=== PATIENT | female | born 1955 | race Caucasian/White ===

== ENCOUNTER → 2019-08-04 | Day surgery (SDC) | payer MEDICARE ==
--- NOTE | 2019-07-31 15:10 | NUR ---
Checked patient's temperature 98.1F via skin probe. Patient denies being out of the country in the last 14 days. Patient denies being around anyone who has been out of the country in the last 14 days. Patient denies being around anyone who has been exposed or diagnosed with COVID-19 in the last 14 days. Patient denies fever, cough, or new onset shortness of breath within the last 14 days.
[2019-07-31 16:48] LABS: BASOPHILS % 0.2 % (0.0-1.0); EOSINOPHILS # (AUTO) 0.1 (0.0-0.4); EOSINOPHILS % 1.4 % (0.0-6.0); HEMATOCRIT 39.6 % (34.2-44.1); HEMOGLOBIN 13.2 g/dL (12.0-16.0); MEAN CORPUSCULAR HGB CONC 33.3 g/dL (31-35); MONOCYTES # (AUTO) 0.4 (0.2-0.8); MONOCYTES % 6.5 % (4.4-11.3); NEUTROPHILS # (AUTO) 3.2 (2.1-6.9); NEUTROPHILS % 56.7 % (38.7-80.0); PLATELET COUNT 188 x10e3/uL (140-360); RED BLOOD COUNT 4.26 x10e6/uL (3.6-5.1); RED CELL DISTRIBUTION WIDTH 13.1 % (11.7-14.4)
[2019-07-31 17:08] LABS: ALBUMIN 4.3 g/dL (3.5-5.0); ALBUMIN/GLOBULIN RATIO 1.5 (0.8-2.0); ANION GAP 13.4 mmol/L (8-16); CALCIUM 9.4 mg/dL (8.4-10.2); CREATININE, SERUM 1.18 mg/dL (0.57-1.11); POTASSIUM 3.4 mmol/L (3.5-5.1)
--- NOTE | 2019-08-03 16:20 | NUR ---
Patient notified procedural time changed to 1030 on 08/04/2019. Patient instructed no eating or drinking after midnight. Patient verbalized understanding.
[2019-08-04] VITALS (7 sets, daily range): BP systolic 95–107; BP diastolic 52–69
[~2019-08-04] VITALS: Ht 162.6 cm; Wt 81.6 kg
[~2019-08-04] MED LIST: ACETAMINOPHEN IM; ALPRAZOLAM 0.5 MG TAB ONE; ALPRAZOLAM0.25 MG PO; AMANTADINE100 M1 PO; AMBIEN5 MG PO; ATORVASTATIN CA20 MG PO; BUT IM; CARVEDILOL3.125 MG PO; DIHYDROERGO1 MG/1 ML IM; DIPHENHYDRAMINE HCL 25 MG CAP ONE; FENTANYL CITRATE/PF 100MCG/2 ML INJ ONE; FUROSEMIDE40 MG PO; GABAPENTIN300 MG PO; HEPARIN SOD/SOD CHLORIDE 2,000 ML ONE; HYDROCHLOROTHIA25 MG PO; HYDROXYCHLOROQ200 MG PO; HYDROXYZINE HCL25 MG PO; IOPAMIDOL 370 MG/ML 200 ML INFUS..BTL INJ ONE; LIDOCAINE HCL 2% LOCAL 20 ML VIAL ONE; MAXALT10 MG PO; MIDAZOLAM HCL 2 MG/2 ML VIAL ONE; SODIUM CHLORIDE 0.9% 1000ML 1,000 ML ONE; TEMAZEPAM15 MG PO; TOPIRAMATE25 MG PO; TOVIAZ4 MG PO; ULTRAM50 MG PO; VERAPAMIL HCL 2.5 MG/ML 2 ML VIAL ONE; VESICARE5 MG PO; VITAMIN D250000 UNIT PO
--- OUTSIDE RECORDS SUMMARY | 2019-08-04 09:54 | XMS REPORT | Summary of Care ---
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: Active Medications Name Dates Details Toviaz 4 MG Oral Tablet Extended Release 24 Hour Active Kevzara 200 MG/1.14ML Subcutaneous Solution Prefilled Syringe * Refills: 0 Active Gabapentin 100 MG Oral Capsule * Refills: 0 Active traMADol HCl - 50 MG Oral Tablet * Refills: 0 Active Temazepam 15 MG Oral Capsule * Refills: 0 Active Amantadine HCl - 100 MG Oral Tablet * Refills: 0 Active Eivqiwsnut-CBUQ-Uvvhucgb 50-325-40 MG Oral Tablet * Refills: 0 Active ALPRAZolam 0.25 MG Oral Tablet * Refills: 0 Active Lasix 20 MG Oral Tablet * Refills: 0 Active Atorvastatin Calcium 20 MG Oral Tablet * Refills: 0 Active Allergies and Adverse Reactions Name Dates Details No Known Drug Allergies (Allergy) Status: Active Past Medical History Name Dates Details History of Migraine headache (346.90, G43.909) Status: Resolved History of Parkinson disease, symptomatic (332.0, G20) Status: Resolved History of rheumatoid arthritis (V13.4, Z87.39) Status: Resolved Procedures Procedure Dates Details [UTP] Toxin - Botox Date: 08-Apr-2019 History of Tonsillectomy Completed History of Complete Colonoscopy Completed History of Hysterectomy Completed History of Angioplasty Completed Immunization Name Dates Details Immunizations not documented Family History Name Dates Details Family history of Nerve disorder (349.9, G58.9) Status: Active Family history of diabetes mellitus (V18.0, Z83.3) Status: Active Family history of cerebrovascular accident (CVA) (V17.1, Z82.3) Status: Active Family history of malignant neoplasm (V16.9, Z80.9) Status: Active Social History Name Dates Details - Status: Name Dates Details Never smoker Vital Signs Date Test Result Details [id number] BP Systolic 112 mm[Hg] Status: Comments: Location: LLE; Position: Sitting BP Diastolic 70 mm[Hg] Status: Comments: Location: LLE; Position: Sitting Height 64 in Status: Weight 154 lb Status: Body Mass Index Calculated 26.43 kg/m2 Status: Body Surface Area Calculated 1.75 m2 Status: Temperature 98.6 f Status: Heart Rate 85 /min Status: Results Date Description Value Details Results not documented Plan of Care Name Dates Details Planned Observations [UTP] Toxin - Botox On: 08-Jul-2019 Intent Planned Goals not documented Planned Encounters Appointment; TERRELL WHITLEY M.D. On: 08-Jul-2019 10:00 Interventions Provided Labs/Procedures/Imaging* Tobacco Use Screening; Done: 08 Apr 2019 Instructions Name Dates Details Instructions not documented Encounters Appointment; TERRELL WHITLEY M.D. Encounter Diagnosis: Problem not documented On: 08-Apr-2019 11:45
--- OUTSIDE RECORDS SUMMARY | 2019-08-04 09:54 | XMS REPORT | Summary of Care ---
Author Author SATURDAY TERRELL Lucero Unknown Address Unknown Phone Unavailable Care Team Providers Care Refractory Grinder Operator Name Role Phone SATURDAY TERRELL Lucero Unavailable [...] MG Oral Tablet * Refills: 0 Active Kicgapmkuh-QRFJ-Rmddwngr 50-325-40 MG Oral Tablet * Refills: 0 [...] Z87.39) Status: Resolved Procedures Procedure Dates Details History of Tonsillectomy Completed History of Complete [...] smoker Vital Signs Date Test Result Details No Known Vitals to report Results Date Description Value Details Results not documented Plan of Care Name Dates Details Planned Observations [UTP] Toxin - Botox On: 08-Jul-2019 Intent Planned Goals not documented Planned Encounters Appointment; ANGITERRELL OCASIO M.D. On: 08-Jul-2019 10:00 Interventions Provided Labs/Procedures/Imaging* Tobacco Use Screening; Done: 08 Apr 2019 Instructions Name Dates Details Instructions not documented Encounters Appointment; TERRELL WHITLEY M.D. Encounter Diagnosis: Problem not documented On: 08-Apr-2019 11:45
--- NOTE | 2019-08-04 11:56 | NUR ---
1156amRECEIVING NOTE MACHINE MAINTENANCE SERVICER RECOVERY DEPT............................................................... Bedside report received from THIERNO Garcia. Identifierx2. Alert oriented and appropriate, PERRLA, respirations even and unlabored to room air. Pulses x4 extremities equal and strong. Pedal pulses PT/DP X4 and marked. Rt TR band ok to decrease at 1245p Skin warm and dry integrity appears D/I. IV 20g to left ac presents healthy w/o s/s of infiltration or complaint. Abdomen soft and supple. pt offered toileting, denies need to urinate or defecate. No personal affects with patient. Family at bedside. Pt and family verbalizes understanding of POC. Currently w/o complaint of pain or need. margarita/rn
--- NOTE | 2019-08-04 12:24 | Operative Report ---
DATE OF PROCEDURE: 08/04/2019 SURGEON: Adithya King MD INDICATION: Coronary artery disease, unstable angina, abnormal stress test. PROCEDURES PERFORMED: 1. Left heart catheterization, selective coronary angiography. 2. Deployment of right wrist TR band. 3. Ultrasound-guided access in the right radial artery. 4. 35 minutes for conscious sedation, monitoring and administration, hemodynamic and neurological assessment. Recovery by supervisor labor gang RN and supervision by MD. COMPLICATIONS: None. BLOOD LOSS: Minimal. RECOMMENDATIONS: Medical therapy. DESCRIPTION OF PROCEDURE: Access obtained in the right radial artery using ultrasound guidance. A 5-[place]awk sheath was placed. Coronary angiography demonstrated mid left anterior descending artery 50%, proximal circumflex 50%, remaining vessels had diffuse 30% to 50% stenosis. LV end-diastolic pressure of 13. No gradient across the aortic valve on pullback. No intervention deemed necessary. Right wrist TR band applied. The patient was discharged home same day. MD DESMOND FanB/MODL /[id number]
--- NOTE | 2019-08-04 12:45 | NUR ---
1245p RADIAL COMPRESSION REMOVAL NOTE: Initial Cuff volume 10 cc 1245p -5cc Removed No hematoma/bleeding noted with normal neurovascular function. 1300p -5cc Removed No hematoma/ bleeding noted with normal neurovascular function. Air removal completed. Stasis achieved sterile 2x2,Tegaderm, Coban dressing No hematoma, bleeding noted with normal neurovascular function. Wrist splint in place. Pt instructed on POC. Ds/Rn
--- NOTE | 2019-08-04 13:30 | NUR ---
1330pm CHIEF ENVIRONMENTAL COMMITMENT OFFICER RECOVERY DISCHARGE NURSING NOTE Pt meets DC criteria. Skin assessed for s/s of complication and presence of hematoma. Skin warm, dry, no discolor, and pulses present. IV removed from rt hand, Distal tip appears intact. VS WNL. Pt denies pain, sob, or need at this time. Family at Review of discharge paperwork and follow up instructions. verbalized understanding. Pt to wheelchair and transported to front of hospital. Transferred to private vehicle under own strength w/o incident with DC paperwork in hand. -margarita/rn
== END | disposition home or self-care (01) ==
LOC: CATH LAB 09:47
PROVIDERS: ATTEND Internal Medicine Interventional Cardiology
DX: I25.110 Atherosclerotic heart disease of native coronary artery with unstable angina pectoris (principal); M06.9 Rheumatoid arthritis, unspecified; G20 Parkinson's disease; I95.0 Idiopathic hypotension; R94.39 Abnormal result of other cardiovascular function study; Z01.812 Encounter for preprocedural laboratory examination
CPT/HCPCS: 36415; 76937; 80053; 85025; 93458; C1769; C1887; J2001; J2250; J3010; J7030; Q9967; 99152